=== PATIENT | female | born 1970 | race Caucasian/White ===

== ENCOUNTER 2016-04-29 10:12 | Outpatient (CLI) | payer MEDICAID | END 2016-04-29 10:13 | disposition home or self-care (01) | DX: Z00.00 Encounter for general adult medical examination without abnormal findings (principal); R63.4 Abnormal weight loss; N92.1 Excessive and frequent menstruation with irregular cycle ==

== ENCOUNTER 2016-05-06 10:09 | Outpatient (CLI) | payer MEDICAID | END 2016-05-06 10:10 | disposition home or self-care (01) | DX: D25.1 Intramural leiomyoma of uterus (principal); D25.2 Subserosal leiomyoma of uterus ==

== ENCOUNTER 2016-05-06 10:12 | Outpatient (CLI) | payer MEDICAID | END 2016-05-06 10:13 | disposition home or self-care (01) | DX: N60.02 Solitary cyst of left breast (principal) ==

== ENCOUNTER 2018-04-04 17:24 | Emergency (ER) | payer MEDICAID ==
[2018-04-04 18:13] LABS: BASOPHILS % (AUTO) 0.8 %; EOSINOPHILS # (AUTO) 0.1 10^3/uL (0.0-0.7); EOSINOPHILS % (AUTO) 1.5 %; HGB - HEMOGLOBIN 13.9 g/dL (12.0-16.0); LYMPHOCYTES # (AUTO) 1.8 10^3/uL (1.5-3.5); LYMPHOCYTES % (AUTO) 30.4 %; MEAN CORPUSCULAR HGB CONC 32.7 g/dL (32.0-36.0); MEAN CORPUSCULAR VOLUME 91.7 fL (81.0-99.0); MEAN PLATELET VOLUME 7.1 fL (7.9-10.8); MONOCYTES # (AUTO) 0.4 10^3/uL (0.0-1.0); MONOCYTES % (AUTO) 6.3 %; NEUTROPHILS # (AUTO) 3.6 10^3/uL (1.5-6.6); PLT - PLATELET COUNT 305 10^3/uL (130-450); RED BLOOD COUNT 4.64 10^6/uL (4.20-5.40); RED CELL DISTRIBUTION WIDTH 13.5 % (12.0-15.0)
[2018-04-04 18:28] LABS: ACETAMINOPHEN < 10 ug/mL (10-30); ALBUMIN 4.2 g/dL (3.2-5.5); ALBUMIN/GLOBULIN RATIO 1.2 (1.0-2.2); ALKALINE PHOSPHATASE 52 IU/L (42-121); ALT ALANINE AMINOTRANSFERASE 12 IU/L (10-60); AST ASPARTATE AMINOTRANSFERASE 22 IU/L (10-42); BILIRUBIN,TOTAL 0.4 mg/dL (0.2-1.0); BUN - BLOOD UREA NITROGEN 9 mg/dL (6-20); CALCIUM 8.9 mg/dL (8.5-10.3); CARBON DIOXIDE - CO2 23 mmol/L (21-32); CHLORIDE 106 mmol/L (101-111); CREATININE 1.2 mg/dL (0.4-1.0); GFR - MDRD 48 (>89); GLUCOSE 87 mg/dL (70-100); LIPASE 31 U/L (22-51); SALICYLATE < 6.0 mg/dL; SODIUM 138 mmol/L (135-145); TOTAL PROTEIN 7.6 g/dL (6.7-8.2)
[2018-04-04 19:46] LABS: MUDS CUTOFF CONCENTRATIONS CUTOFF CONC BELOW:
[2018-04-04 19:49] LABS: BILIRUBIN,URINE NEGATIVE (NEGATIVE); GLUCOSE, URINE (UA) NEGATIVE (NEGATIVE); KETONES,URINE (UA) NEGATIVE (NEGATIVE); LEUKOCYTE ESTERASE, URINE TRACE (NEGATIVE); NITRITE,URINE NEGATIVE (NEGATIVE); OCCULT BLOOD,URINE LARGE (NEGATIVE); PROTEIN,URINE TRACE mg/dL (NEGATIVE); UROBILINOGEN,URINE 0.2 (NORMAL) E.U./dL (NORMAL)
[2018-04-04 19:52] LABS: CLARITY,URINE BLOODY (CLEAR); HCG UR QUAL NEGATIVE
[2018-04-04] MEDS ORDERED: PANTOPRAZOLE 40 MG TABLET PO STA (19:54)
[2018-04-04 19:55] LABS: BACTERIA,URINE None Seen /HPF (None Seen); SQUAMOUS EPITHELIAL CELL,UR FEW Squamous (<= Few)
--- NOTE | 2018-04-04 19:57 | ED Physician Documentation ---
History of Present Illness - Stated complaint Stated Complaint: BACK PX/STRESS/SOA/ANXIETY - Chief complaint Chief Complaint: General - History obtained from History obtained from: Patient - History of Present Illness Timing: Other (47-year-old woman with history of anxiety and pressure and has been self-medicating with alcohol and is subacute epigastric pain that does not change with eating worse over the last few days without vomiting or changes in bowel movements. She also would like to quit drinking. She would like some medications for it and specifically requests naltrexone she is never been on before she will try to get counseling near her home.) Review of Systems Constitutional: denies: Fever, Chills Nose: denies: Rhinorrhea / runny nose, Congestion Cardiac: denies: Chest pain / pressure, Palpitations Respiratory: denies: Dyspnea, Cough GI: reports: Abdominal Pain. denies: Nausea, Vomiting PD PAST MEDICAL HISTORY - Past Surgical History Past Surgical History: No - Present Medications Home Medications: Ambulatory Orders Medication Instructions Recorded Confirmed Ondansetron Odt [Zofran] 4 mg TL Q6H PRN #14 tablet 12/19/15 Naltrexone HCl 50 mg PO DAILY #30 tablet 04/04/18 Omeprazole 20 mg PO BID #30 tablet. 04/04/18 clonazePAM [Clonazepam] 1 mg PO TID PRN #15 tablet 04/04/18 - Allergies Allergies/Adverse Reactions: Allergies Allergy/AdvReac Type Severity Reaction Status Date / Time No Known Drug Allergies Allergy Verified 04/04/18 17:49 - Social History Does the pt smoke?: Yes Smoking Status: Current every day smoker Does the pt drink ETOH?: No Does the pt have substance abuse?: No - Immunizations Immunizations are current?: No Immunizations: TDAP >10years/unknown PD ED PE NORMAL - Vitals Vital signs reviewed: Yes - General General: Alert and oriented X 3, No acute distress - HEENT HEENT: PERRL, EOMI - Neck Neck: Supple, no meningeal sign, No bony TTP - Cardiac Cardiac: RRR, No murmur - Respiratory Respiratory: No respiratory distress, Clear bilaterally - Abdomen Abdomen: Normal bowel sounds, Soft, Non tender - Neuro Neuro: Alert and oriented X 3, Normal speech - Psych Psych: Normal mood, Normal affect Results - Vitals Vitals: Vital Signs - 24 hr 04/04/18 04/04/18 17:40 19:27 Temperature 36.4 C L 36.8 C Heart Rate 85 100 Respiratory 16 18 Rate Blood Pressure 120/87 H 109/68 O2 Saturation 99 99 Oxygen O2 Source Room air - EKG (time done) 1752 Rate: Rate (enter#) (97) Rhythm: NSR [place]: Normal Intervals: Normal IA QRS: Normal Ischemia: Normal ST segments Computer interpretation: Agree with computer - Labs Labs: Laboratory Tests 04/04/18 04/04/18 04/04/18 18:08 18:08 18:08 WBC 6.0 RBC 4.64 Hgb 13.9 Hct 42.6 MCV 91.7 MCH 30.0 MCHC 32.7 RDW 13.5 Plt Count 305 MPV 7.1 L Neut # (Auto) 3.6 Lymph # (Auto) 1.8 [place] # (Auto) 0.4 Eos # (Auto) 0.1 Baso # (Auto) 0.0 Absolute Nucleated RBC 0.01 Nucleated RBC % 0.1 Sodium 138 Potassium 3.5 Chloride 106 Carbon Dioxide 23 Anion Gap 9.0 BUN 9 Creatinine 1.2 H Estimated GFR (MDRD) 48 L Glucose 87 Calcium 8.9 Total Bilirubin 0.4 AST 22 ALT 12 Alkaline Phosphatase 52 Total Protein 7.6 Albumin 4.2 Globulin 3.4 Albumin/Globulin Ratio 1.2 Lipase 31 TSH 1.78 Urine Color Urine Clarity Urine pH Ur Specific [place] Urine Protein Urine Glucose (UA) Urine Ketones Urine Occult Blood Urine Nitrite Urine Bilirubin Urine Urobilinogen Ur Leukocyte Esterase Urine RBC Urine WBC Ur Squamous Epith Cells Urine Bacteria Ur Microscopic Review Urine Culture Comments Urine HCG, Qual Salicylates < 6.0 Urine Opiates Screen Ur Oxycodone Screen Urine Methadone Screen Ur Propoxyphene Screen Acetaminophen < 10 L Ur Barbiturates Screen Ur Tricyclics Screen Ur Phencyclidine Scrn Ur Amphetamine Screen U Methamphetamines Scrn U Benzodiazepines Scrn Urine Cocaine Screen U Cannabinoids Screen Ethyl Alcohol 146.6 04/04/18 04/04/18 19:35 19:35 WBC RBC Hgb Hct MCV MCH MCHC RDW Plt Count MPV Neut # (Auto) Lymph # (Auto) [place] # (Auto) Eos # (Auto) Baso # (Auto) Absolute Nucleated RBC Nucleated RBC % Sodium Potassium Chloride Carbon Dioxide Anion Gap BUN Creatinine Estimated GFR (MDRD) Glucose Calcium Total Bilirubin AST ALT Alkaline Phosphatase Total Protein Albumin Globulin Albumin/Globulin Ratio Lipase TSH Urine Color DK. ORANGE Urine Clarity BLOODY Urine pH 6.0 Ur Specific [place] 1.015 1.015 Urine Protein TRACE Urine Glucose (UA) NEGATIVE Urine Ketones NEGATIVE Urine Occult Blood LARGE H Urine Nitrite NEGATIVE Urine Bilirubin NEGATIVE Urine Urobilinogen 0.2 (NORMAL) Ur Leukocyte Esterase TRACE H Urine RBC 6-10 H Urine WBC 4-5 Ur Squamous Epith Cells FEW Squamous Urine Bacteria None Seen Ur Microscopic Review INDICATED Urine Culture Comments INDICATED Urine HCG, Qual NEGATIVE Salicylates Urine Opiates Screen NEGATIVE Ur Oxycodone Screen NEGATIVE Urine Methadone Screen NEGATIVE Ur Propoxyphene Screen NEGATIVE Acetaminophen Ur Barbiturates Screen NEGATIVE Ur Tricyclics Screen NEGATIVE Ur Phencyclidine Scrn NEGATIVE Ur Amphetamine Screen NEGATIVE U Methamphetamines Scrn NEGATIVE U Benzodiazepines Scrn NEGATIVE Urine Cocaine Screen NEGATIVE U Cannabinoids Screen NEGATIVE Ethyl Alcohol PD MEDICAL DECISION MAKING - ED course ED course: 47-year-old woman with history of anxiety and depression presents with ongoing alcohol abuse and symptoms of alcoholic gastritis with a benign examination and labs. She was treated here with Protonix, but will forego other anxiety and a lcohol medications told the morning as she is still intoxicated and she is understanding of this. Departure - Departure Disposition: 01 Home, Self Care Clinical Impression: Alcohol abuse Gastritis Qualifiers: Gastritis type: alcoholic Chronicity: acute Gastritis bleeding: without bleeding Qualified Code(s): K29.20 - Alcoholic gastritis without bleeding Condition: Good Record reviewed to determine appropriate education?: Yes Instructions: ED PUD Vs Gastritis, ED Alcohol Abuse Prescriptions: clonazePAM [Clonazepam] 1 mg PO TID PRN #15 tablet PRN Reason: Anxiety Naltrexone HCl 50 mg PO DAILY #30 tablet Omeprazole 20 mg PO BID #30 tablet. Comments: Call your doctor to arrange a follow-up appointment, make the next available appointment. In the interim, return anytime if worse or if new symptoms develop.
[2018-04-04 20:00] LABS: AMPHETAMINE SCREEN,URINE NEGATIVE (NEGATIVE); BENZODIAZEPINES SCREEN, URINE NEGATIVE (NEGATIVE); COCAINE SCREEN URINE NEGATIVE (NEGATIVE); METHADONE SCREEN, URINE NEGATIVE (NEGATIVE); METHAMPHETAMINES SCREEN, URINE NEGATIVE (NEGATIVE); OPIATE SCREEN, URINE NEGATIVE (NEGATIVE); OXYCODONE SCREEN, URINE NEGATIVE (NEGATIVE); PROPOXYPHENE SCREEN, URINE NEGATIVE (NEGATIVE); TRICYCLIC ANTIDEPRESSANT,URINE NEGATIVE (NEGATIVE)
[2018-04-04 20:05] VITALS: BP 92/73
== END 2018-04-04 20:05 | disposition home or self-care (01) ==
LOC: ED 17:24
DX: F10.10 Alcohol abuse, uncomplicated (principal); K29.20 Alcoholic gastritis without bleeding; F17.290 Nicotine dependence, other tobacco product, uncomplicated
CPT/HCPCS: 36415; 80053; 80306; 80307; 80320; 80329; 81001; 81025; 83690; 84443; 85025; 87086; 93005; 99283; 99284; A9270; 81003

== ENCOUNTER 2018-09-20 10:44 | Outpatient (CLI) | payer MEDICAID ==
[2018-09-20 17:22] LABS: EOSINOPHILS # (AUTO) 0.1 10^3/uL (0.0-0.7); EOSINOPHILS % (AUTO) 1.7 %; LYMPHOCYTES # (AUTO) 1.4 10^3/uL (1.5-3.5); LYMPHOCYTES % (AUTO) 33.9 %; MEAN CORPUSCULAR HEMOGLOBIN 30.4 pg (27.0-31.0); MEAN CORPUSCULAR HGB CONC 32.8 g/dL (32.0-36.0); MEAN CORPUSCULAR VOLUME 92.6 fL (81.0-99.0); MEAN PLATELET VOLUME 10.1 fL (7.9-10.8); MONOCYTES # (AUTO) 0.4 10^3/uL (0.0-1.0); MONOCYTES % (AUTO) 9.7 %; NEUTROPHILS # (AUTO) 2.2 10^3/uL (1.5-6.6); NEUTROPHILS % (AUTO) 53.5 %; PLT - PLATELET COUNT 305 10^3/uL (130-450); RED BLOOD COUNT 4.61 10^6/uL (4.20-5.40); RED CELL DISTRIBUTION WIDTH 13.6 % (12.0-15.0)
[2018-09-20 17:44] LABS: THYROID STIMULATING HORMONE 0.93 uIU/mL (0.34-5.60)
[2018-09-20 18:13] LABS: FOLLICLE STIMULATING HORMONE 18.35 mIU/mL
== END 2018-09-20 10:45 | disposition home or self-care (01) ==
LOC: LAB.S 10:44
PROVIDERS: ATTEND Physician Assistant Medical
DX: N95.9 Unspecified menopausal and perimenopausal disorder (principal); R53.83 Other fatigue
CPT/HCPCS: 36415; 82670; 83001; 84443; 85025

== ENCOUNTER 2018-09-27 16:32 | Outpatient (CLI) | payer MEDICAID ==
--- NOTE | 2018-09-28 08:39 | Mammography Report ---
Reason: SCREENING MAMMO Procedure Date: 09/27/2018 Accession Number: [id number] / [id number] Procedure: ANASTASIA - Screening Mammo w/Julio CPT Code: FULL RESULT: EXAM: Screening Mammo w/Julio DATE: 09/27/2018 4:58 PM CLINICAL HISTORY: Screening encounter. History of late childbearing. Family history of breast cancer in a sister at the age of 46 and a sister at the age of 56. TECHNIQUE: (B) - Bilateral CC and MLO views were obtained. COMPARISON: 05/06/2016. PARENCHYMAL PATTERN: (D) - The breast(s) demonstrate(s) heterogeneously dense fibroglandular parenchyma. FINDINGS: In the right axillary tail region, upper outer quadrant approximately 6 cm from the nipple is a focal asymmetry with questionable architectural distortion and possible calcifications in the setting of new prominent right axillary lymph nodes. This requires clarification with spot magnification views the asymmetry as well as ultrasound of lymph nodes for clarification of architecture and possibly ultrasound of the asymmetry. Seen on 3-D imaging only in the right lateral breast, 5:00 position, approximately 5 to 6 cm from the nipple on right MLO 3-D image 13 and right cc 3-D image 12 is a isodense well-circumscribed 5 mm nodule, ultrasound visualization recommended. There are no suspicious masses, calcifications, or areas of distortion in the left breast. IMPRESSION: Incomplete examination. BI-RADS category 0. RECOMMENDATION: (ADDMU) - Additional views using both Mammography and Ultrasound recommended. Right spot magnification views and ultrasound. BI-RADS CATEGORY: (0) - Incomplete Examination - need additional evaluation. STANDARD QUALIFYING STATEMENTS: 1. This examination was not reviewed with the aid of Computer-Aided Detection (CAD). 2. A negative or benign imaging report should not preclude biopsy if clinically suspicious findings are present. 3. Dense breasts may obscure an underlying neoplasm. 4. This examination was reviewed with the aid of 3D breast imaging (tomosynthesis).
== END 2018-09-27 16:33 | disposition home or self-care (01) ==
LOC: DI 16:32
PROVIDERS: ATTEND Physician Assistant Medical
DX: Z12.31 Encounter for screening mammogram for malignant neoplasm of breast (principal); R92.8 Other abnormal and inconclusive findings on diagnostic imaging of breast; Z80.3 Family history of malignant neoplasm of breast
CPT/HCPCS: 77063; 77067

== ENCOUNTER 2018-10-05 09:38 | Outpatient (CLI) | payer MEDICAID ==
--- NOTE | 2018-10-05 16:21 | Mammography Report ---
Reason: ABNORMAL MAMMOGRAM Procedure Date: 10/05/2018 Accession Number: [id number] / [id number] Procedure: ANASTASIA - Diag Special Views Dig RT CPT Code: FULL RESULT: EXAM: Diag Special Views Dig RT DATE: 10/05/2018 10:29 AM CLINICAL HISTORY: Diagnostic examination. The patient is recalled for a right axillary tail region asymmetry. TECHNIQUE: (R) - Right right spot CC, right spot MLO, right ML images are obtained. Right breast focused ultrasound is performed. COMPARISON: 09/27/2018 and 05/06/2016. PARENCHYMAL PATTERN: (D) - The breast(s) demonstrate(s) heterogeneously dense fibroglandular parenchyma. FINDINGS: The asymmetry in the right axillary tail is revealed a normal-appearing breast tissue without architectural distortion on spot views. Mammography similarly demonstrates interval decrease in size of the visualized axillary lymph nodes. Focused ultrasound of the right axillary region and axillary breast tail demonstrates normal breast tissue and normal-appearing lymph nodes measuring less than 1 cm in short axis with preserved architecture on ultrasound. There are no suspicious masses, calcifications, or areas of distortion. IMPRESSION: Benign findings. BI-RADS category 2. RECOMMENDATION: (ANNUAL) - Recommend routine annual screening mammography. BI-RADS CATEGORY: (2) - Benign Findings. STANDARD QUALIFYING STATEMENTS: 1. This examination was not reviewed with the aid of Computer-Aided Detection (CAD). 2. A negative or benign imaging report should not preclude biopsy if clinically suspicious findings are present. 3. Dense breasts may obscure an underlying neoplasm. 4. This examination was reviewed with the aid of 3D breast imaging (tomosynthesis).
== END 2018-10-05 09:39 | disposition home or self-care (01) ==
LOC: DI 09:38
PROVIDERS: ATTEND Physician Assistant Medical
DX: R92.8 Other abnormal and inconclusive findings on diagnostic imaging of breast (principal)
CPT/HCPCS: 76642

== ENCOUNTER 2018-11-24 09:50 | Emergency (ER) | payer MEDICAID ==
[2018-11-24 10:08] VITALS: BP 121/73
[2018-11-24] MEDS ORDERED: IBUPROFEN 800 MG TABLET PO STA (10:58)
[2018-11-24] MEDS ORDERED: AMOX/CLAV 875 MG/125 MG TABLET PO STA (10:59)
--- NOTE | 2018-11-24 11:02 | ED Physician Documentation ---
PD HPI HEENT - Stated complaint Stated Complaint: EAR PX - Chief complaint Chief Complaint: Heent - History obtained from History obtained from: Patient - History of Present Illness Timing - onset: Today Timing - details: Still present Location: Right ear Similar symptoms before: Has not had sx before - Additional information Additional information: The patient is a 48-year-old female who presents with right earache that started this morning when she awoke. She denies fever, headache, sore throat, or cough. She denies history of similar symptoms in the past. 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 : None HEENT: None Psych: Depression, Anxiety Musculoskeletal: None Derm: None - Past Surgical History Past Surgical History: No - Present Medications Home Medications: Ambulatory Orders Medication Instructions Recorded Confirmed Amox/Clav 875/125 [Augmentin] 1 each PO Q12H #14 tablet 11/24/18 - Allergies Allergies/Adverse Reactions: Allergies Allergy/AdvReac Type Severity Reaction Status Date / Time No Known Drug Allergies Allergy Verified 11/24/18 10:08 - Social History Does the pt smoke?: Yes Smoking Status: Current every day smoker Does the pt drink ETOH?: No Does the pt have substance abuse?: No - Immunizations Immunizations are current?: No Immunizations: TDAP >10years/unknown - POLST Patient has POLST: No PD ED PE NORMAL - Vitals Vital signs reviewed: Yes (normal) - General General: Alert and oriented X 3, Well developed/nourished - HEENT HEENT: Atraumatic, EOMI, Pharynx benign, Other (Right tympanic membrane is markedly erythematous and angry-appearing, with loss of landmarks. Left tympanic membrane is clear.) - Neck Neck: Supple, no meningeal sign, No adenopathy - Cardiac Cardiac: RRR - Respiratory Respiratory: No respiratory distress, Clear bilaterally - Derm Derm: No rash - Neuro Neuro: Alert and oriented X 3 Results - Vitals Vitals: Oxygen O2 Source Room air PD MEDICAL DECISION MAKING - ED course Complexity details: considered differential, d/w patient ED course: The patient's presentation is most consistent with acute right otitis media. Her presentation does not suggest meningitis, pharyngitis, or peritonsillar abscess. Treatment in the emergency department included administration of Augmentin 875 mg orally, and ibuprofen 800 mg orally. She is being discharged with a prescription for Augmentin. I discussed with her the expected course of illness, antibiotic treatment and outpatient follow-up, as well as potentially worrisome signs or symptoms that should prompt reevaluation in the emergency department. Departure - Departure Disposition: Home, Self Care Clinical Impression: Acute right otitis media Condition: Stable Instructions: ED Otitis Media Acute Adult Follow-Up: Nikunj Hooker MD [Provider Admit Priv/Credential] - Prescriptions: Amox/Clav 875/125 [Augmentin] 1 each PO Q12H #14 tablet Comments: Take Augmentin twice daily as prescribed. You can use ibuprofen, up to 800 mg 3 times daily if needed for pain. Follow-up with your primary physician within 2 weeks. Call to schedule an appointment. Return to the emergency department if you develop increasing pain, difficulty swallowing, or otherwise worsening symptoms. Discharge Date/Time: 11/24/18 11:10
== END 2018-11-24 11:10 | disposition home or self-care (01) ==
LOC: ED 09:50
DX: H66.91 Otitis media, unspecified, right ear (principal); F17.200 Nicotine dependence, unspecified, uncomplicated
CPT/HCPCS: 99282; 99283; A9270

== ENCOUNTER 2019-03-23 04:07 | Emergency (ER) | payer MEDICAID ==
--- NOTE | 2019-03-23 04:33 | ED Physician Documentation ---
History of Present Illness - Stated complaint Stated Complaint: ANXIETY - History obtained from History obtained from: Patient - History of Present Illness Timing: Chronic Pain level max: 0 Pain level now: 0 Improved by: nothing Worsened by: no exacerbating factors - Additonal information Additional information: patient says she began drinking on a regular, daily basis 3 years ago, typically 6-12 beers per day. She also took up smoking around the same time. She says this is "to cope" (per patient) with stress and feeling depressed. She presents at this time asking for help in quitting drinking. She says she was able to stop drinking for 10 days at the end of last month when she was on a "meditative retreat", but she was dismayed to find that as soon as she returned from this, she resumed drinking as before Review of Systems Cardiac: reports: Reviewed and negative Respiratory: reports: Reviewed and negative GI: denies: Abdominal Pain, Nausea, Vomiting, Constipation, Diarrhea Psychiatric: reports: Depressed, Insomnia. 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 : None HEENT: None Psych: Depression, Anxiety Musculoskeletal: None Derm: None - Past Surgical History Past Surgical History: No - Present Medications Home Medications: Ambulatory Orders Medication Instructions Recorded Confirmed Amox/Clav 875/125 [Augmentin] 1 each PO Q12H #14 tablet 11/24/18 Cetirizine [ZyrTEC] 10 mg PO DAILY #15 tablet 03/23/19 LORazepam [Ativan] 1 mg PO Q6H PRN #25 tablet 03/23/19 dexAMETHasone [Decadron] 4 mg PO DAILY #5 tablet 03/23/19 - Allergies Allergies/Adverse Reactions: Allergies Allergy/AdvReac Type Severity Reaction Status Date / Time No Known Drug Allergies Allergy Verified 11/24/18 10:08 - Social History Does the pt smoke?: Yes Smoking Status: Current every day smoker Does the pt drink ETOH?: No Does the pt have substance abuse?: No - Immunizations Immunizations are current?: No Immunizations: TDAP >10years/unknown - POLST Patient has POLST: No PD ED PE NORMAL - Vitals Vital signs reviewed: Yes - General General: Alert and oriented X 3, No acute distress, Well developed/nourished - HEENT HEENT: PERRL, Moist mucous membranes - Cardiac Cardiac: RRR, No murmur - Respiratory Respiratory: No respiratory distress, Clear bilaterally - Abdomen Abdomen: Soft, Non tender - Neuro Neuro: Alert and oriented X 3 Eye Opening: Spontaneous Motor: Obeys Commands Verbal: Oriented GCS Score: 15 - Psych Psych: Normal affect, Other (mood is appropriate to situation; cries when we discuss her depression) Results - Vitals Vitals: Vital Signs - 24 hr 03/23/19 03/23/19 03/23/19 04:09 08:25 10:12 Temperature 36.8 C 36.7 C Heart Rate 87 86 66 Respiratory 18 16 16 Rate Blood Pressure 130/83 H 104/60 113/75 O2 Saturation 99 100 100 Oxygen O2 Source Room air - Labs Labs: Laboratory Tests 03/23/19 03/23/19 03/23/19 04:55 05:00 05:00 WBC 7.1 RBC 4.70 Hgb 13.8 Hct 42.1 MCV 89.6 MCH 29.4 MCHC 32.8 RDW 14.0 Plt Count 298 MPV 8.9 Neut # (Auto) 4.0 Lymph # (Auto) 2.3 [place] # (Auto) 0.6 Eos # (Auto) 0.2 Baso # (Auto) 0.1 Absolute Nucleated RBC 0.00 Nucleated RBC % 0.0 Sodium 136 Potassium 4.1 Chloride 104 Carbon Dioxide 25 Anion Gap 7.0 BUN 12 Creatinine 0.8 Estimated GFR (MDRD) 77 L Glucose 90 Calcium 9.1 Total Bilirubin 0.5 AST 20 ALT 14 Alkaline Phosphatase 50 Total Protein 7.6 Albumin 4.3 Globulin 3.3 Albumin/Globulin Ratio 1.3 Lipase 43 TSH Urine Color YELLOW Urine Clarity CLEAR Urine pH 5.5 Ur Specific [place] 1.015 Urine Protein NEGATIVE Urine Glucose (UA) NEGATIVE Urine Ketones NEGATIVE Urine Occult Blood TRACE-INTA Urine Nitrite NEGATIVE Urine Bilirubin NEGATIVE Urine Urobilinogen 0.2 (NORMAL) Ur Leukocyte Esterase NEGATIVE Ur Microscopic Review NOT INDICATED Urine Culture Comments NOT INDICATED Salicylates < 6.0 Urine Opiates Screen NEGATIVE Ur Oxycodone Screen NEGATIVE Urine Methadone Screen NEGATIVE Ur Propoxyphene Screen NEGATIVE Acetaminophen < 10 L Ur Barbiturates Screen NEGATIVE Ur Tricyclics Screen NEGATIVE Ur Phencyclidine Scrn NEGATIVE Ur Amphetamine Screen NEGATIVE U Methamphetamines Scrn NEGATIVE U Benzodiazepines Scrn NEGATIVE Urine Cocaine Screen NEGATIVE U Cannabinoids Screen NEGATIVE Ethyl Alcohol < 5.0 03/23/19 05:00 WBC RBC Hgb Hct MCV MCH MCHC RDW Plt Count MPV Neut # (Auto) Lymph # (Auto) [place] # (Auto) Eos # (Auto) Baso # (Auto) Absolute Nucleated RBC Nucleated RBC % Sodium Potassium Chloride Carbon Dioxide Anion Gap BUN Creatinine Estimated GFR (MDRD) Glucose Calcium Total Bilirubin AST ALT Alkaline Phosphatase Total Protein Albumin Globulin Albumin/Globulin Ratio Lipase TSH 2.27 Urine Color Urine Clarity Urine pH Ur Specific [place] Urine Protein Urine Glucose (UA) Urine Ketones Urine Occult Blood Urine Nitrite Urine Bilirubin Urine Urobilinogen Ur Leukocyte Esterase Ur Microscopic Review Urine Culture Comments Salicylates Urine Opiates Screen Ur Oxycodone Screen Urine Methadone Screen Ur Propoxyphene Screen Acetaminophen Ur Barbiturates Screen Ur Tricyclics Screen Ur Phencyclidine Scrn Ur Amphetamine Screen U Methamphetamines Scrn U Benzodiazepines Scrn Urine Cocaine Screen U Cannabinoids Screen Ethyl Alcohol PD MEDICAL DECISION MAKING - ED course Complexity details: reviewed old records, reviewed results, re-evaluated patient, considered differential, d/w patient ED course: Patient was T+R from this ED 1 year ago for similar c/o. She was provided rx for naltrexone, omeprazole, and clonazepam. However, she tells me she never filled the rx. She says she has never received treatment or counseling for alcoholism. Will have PAULINO jefferson in AM Departure - Departure Disposition: 01 Home, Self Care Clinical Impression: Alcohol abuse, Ear pain, left, Depressed affect Condition: Good Instructions: ED Depression, ED Alcohol Abuse Follow-Up: [facility] [place] [Provider Group] [facility] [Provider Group] Prescriptions: Cetirizine [ZyrTEC] 10 mg PO DAILY #15 tablet dexAMETHasone [Decadron] 4 mg PO DAILY #5 tablet LORazepam [Ativan] 1 mg PO Q6H PRN #25 tablet PRN Reason: Alcohol Withdrawal Comments: Stay well-hydrated. Avoid alcohol. Daily exercise. Use lorazepam every 6-8 hours if needed for alcohol withdrawal or shakiness. He can also be used to help as a sleep aid at night. For your your pain, I presume it some inflammation and poor drainage through the eustachian tube. Use cetirizine antihistamine daily for couple weeks. Decadron steroid daily for 5 days. Follow-up with your primary care regarding general wellness. Follow-up with the resources for alcoholism provided by the social work. You can follow-up with research microbiologist if your ear is not improving and that could be a group up in [place] or you could call the [facility] for their ENT there to set up an appointment. Discharge Date/Time: 03/23/19 10:29
[2019-03-23 05:07] LABS: MUDS CUTOFF CONCENTRATIONS CUTOFF CONC BELOW:
[2019-03-23 05:08] LABS: BASOPHILS # (AUTO) 0.1 10^3/uL (0.0-0.1); EOSINOPHILS # (AUTO) 0.2 10^3/uL (0.0-0.7); EOSINOPHILS % (AUTO) 2.7 %; HGB - HEMOGLOBIN 13.8 g/dL (12.0-16.0); LYMPHOCYTES # (AUTO) 2.3 10^3/uL (1.5-3.5); LYMPHOCYTES % (AUTO) 31.7 %; MEAN CORPUSCULAR HEMOGLOBIN 29.4 pg (27.0-31.0); MEAN CORPUSCULAR HGB CONC 32.8 g/dL (32.0-36.0); MEAN CORPUSCULAR VOLUME 89.6 fL (81.0-99.0); MEAN PLATELET VOLUME 8.9 fL (7.9-10.8); MONOCYTES # (AUTO) 0.6 10^3/uL (0.0-1.0); MONOCYTES % (AUTO) 7.9 %; NEUTROPHILS % (AUTO) 56.3 %; PLT - PLATELET COUNT 298 10^3/uL (130-450); WHITE BLOOD COUNT 7.1 x10^3/uL (4.8-10.8)
[2019-03-23 05:10] LABS: BILIRUBIN,URINE NEGATIVE (NEGATIVE); GLUCOSE, URINE (UA) NEGATIVE (NEGATIVE); KETONES,URINE (UA) NEGATIVE (NEGATIVE); LEUKOCYTE ESTERASE, URINE NEGATIVE (NEGATIVE); NITRITE,URINE NEGATIVE (NEGATIVE); OCCULT BLOOD,URINE TRACE-INTA (NEGATIVE); PH,URINE 5.5 PH (5.0-7.5); PROTEIN,URINE NEGATIVE (NEGATIVE); UROBILINOGEN,URINE 0.2 (NORMAL) E.U./dL (NORMAL)
[2019-03-23 05:11] LABS: CLARITY,URINE CLEAR (CLEAR)
[2019-03-23 05:22] LABS: AMPHETAMINE SCREEN,URINE NEGATIVE (NEGATIVE); BENZODIAZEPINES SCREEN, URINE NEGATIVE (NEGATIVE); COCAINE SCREEN URINE NEGATIVE (NEGATIVE); METHADONE SCREEN, URINE NEGATIVE (NEGATIVE); METHAMPHETAMINES SCREEN, URINE NEGATIVE (NEGATIVE); OPIATE SCREEN, URINE NEGATIVE (NEGATIVE); OXYCODONE SCREEN, URINE NEGATIVE (NEGATIVE); PROPOXYPHENE SCREEN, URINE NEGATIVE (NEGATIVE); TRICYCLIC ANTIDEPRESSANT,URINE NEGATIVE (NEGATIVE)
[2019-03-23 05:24] LABS: ACETAMINOPHEN < 10 ug/mL (10-30); ALBUMIN 4.3 g/dL (3.2-5.5); ALBUMIN/GLOBULIN RATIO 1.3 (1.0-2.2); ALKALINE PHOSPHATASE 50 IU/L (42-121); ALT ALANINE AMINOTRANSFERASE 14 IU/L (10-60); AST ASPARTATE AMINOTRANSFERASE 20 IU/L (10-42); BILIRUBIN,TOTAL 0.5 mg/dL (0.2-1.0); BUN - BLOOD UREA NITROGEN 12 mg/dL (6-20); CALCIUM 9.1 mg/dL (8.5-10.3); CARBON DIOXIDE - CO2 25 mmol/L (21-32); CHLORIDE 104 mmol/L (101-111); CREATININE 0.8 mg/dL (0.4-1.0); GFR - MDRD 77 (>89); GLUCOSE 90 mg/dL (70-100); LIPASE 43 U/L (22-51); SALICYLATE < 6.0 mg/dL; SODIUM 136 mmol/L (135-145); TOTAL PROTEIN 7.6 g/dL (6.7-8.2)
[2019-03-23 10:20] VITALS: BP 113/75
== END 2019-03-23 10:29 | disposition home or self-care (01) ==
LOC: ED 04:07
DX: F32.9 Major depressive disorder, single episode, unspecified (principal); F10.10 Alcohol abuse, uncomplicated; H92.02 Otalgia, left ear; F17.200 Nicotine dependence, unspecified, uncomplicated
CPT/HCPCS: 36415; 80053; 80306; 80307; 80320; 80329; 81001; 81003; 83690; 84443; 85025; 87086; 99283; 99284

== ENCOUNTER 2019-04-01 17:34 | Emergency (ER) | payer MEDICAID ==
--- NOTE | 2019-04-01 18:03 | ED Physician Documentation ---
PD HPI ABD PAIN - Stated complaint Stated Complaint: RAPID HEART RATE, SOA - Chief complaint Chief Complaint: Cardiac - History obtained from History obtained from: Patient - History of Present Illness Timing - onset: Other (Over the last 3 days this woman has had some trouble with alcohol in the past has been overindulging on herbal supplements because they contain alcohol. She drank 3 full bottles of herbal teas/extracts. 1 contained [place], holy basil, mother work, to the [place], another contained go to cola and pedicular areas and milky oats and the last one contained go to cola black cohosh etc. They all had alcohol in them. Now she feels like her heart is beating oddly and is feeling anxious. She also had some sweats and wondered if her pupils are the wrong size.) Review of Systems Constitutional: reports: Sweats. denies: Fever, Chills Nose: denies: Rhinorrhea / runny nose, Congestion Cardiac: reports: Chest pain / pressure, Palpitations Respiratory: denies: Dyspnea, Cough PD PAST MEDICAL HISTORY - Past Medical History Cardiovascular: None Respiratory: None Neuro: None Endocrine/Autoimmune: None GI: None RADIO PERSONALITY: None : None HEENT: None Psych: Depression, Anxiety Musculoskeletal: None Derm: None - Past Surgical History Past Surgical History: No - Present Medications Home Medications: Ambulatory Orders Medication Instructions Recorded Confirmed Amox/Clav 875/125 [Augmentin] 1 each PO Q12H #14 tablet 11/24/18 Cetirizine [ZyrTEC] 10 mg PO DAILY #15 tablet 03/23/19 LORazepam [Ativan] 1 mg PO Q6H PRN #25 tablet 03/23/19 dexAMETHasone [Decadron] 4 mg PO DAILY #5 tablet 03/23/19 - Allergies Allergies/Adverse Reactions: Allergies Allergy/AdvReac Type Severity Reaction Status Date / Time No Known Drug Allergies Allergy Verified 04/01/19 17:46 - Social History Does the pt smoke?: Yes Smoking Status: Current every day smoker Does the pt drink ETOH?: No Does the pt have substance abuse?: No - Immunizations Immunizations are current?: No Immunizations: TDAP >10years/unknown - POLST Patient has POLST: No PD ED PE NORMAL - Vitals Vital signs reviewed: Yes - General General: Alert and oriented X 3, No acute distress - HEENT HEENT: PERRL, EOMI - Neck Neck: Supple, no meningeal sign, No bony TTP - Cardiac Cardiac: RRR, No murmur - Respiratory Respiratory: No respiratory distress, Clear bilaterally - Abdomen Abdomen: Non tender - Neuro Neuro: Alert and oriented X 3, Normal speech - Psych Psych: Normal mood, Normal affect Results - Vitals Vitals: Vital Signs - 24 hr 04/01/19 17:42 Temperature 36.0 C L Heart Rate 102 H Respiratory 20 Rate Blood Pressure 117/77 O2 Saturation 98 Oxygen O2 Source Room air - EKG (time done) 1740 Rate: Rate (enter#) (82) Rhythm: NSR [place]: Normal Intervals: Normal [place] QRS: Normal Ischemia: Normal ST segments Computer interpretation: Agree with computer - Labs Labs: Laboratory Tests 04/01/19 18:25 Sodium 138 Potassium 3.2 L Chloride 107 Carbon Dioxide 20 L Anion Gap 11.0 BUN 11 Creatinine 0.6 Estimated GFR (MDRD) 107 Glucose 82 Calcium 8.5 Total Bilirubin 0.8 AST 19 ALT 12 Alkaline Phosphatase 33 L Total Protein 6.7 Albumin 3.7 Globulin 3.0 Albumin/Globulin Ratio 1.2 Lipase 34 Ethyl Alcohol 17.9 PD MEDICAL DECISION MAKING - ED course ED course: 48-year-old woman presents with jitteriness and palpitations after drinking too much of herbal extracts containing alcohol. She was observed for a while without clinical decompensation and no arrhythmias on the monitor. Departure - Departure Disposition: Home, Self Care Clinical Impression: Abuse of herbal medicine, Heart palpitations Condition: Good Record reviewed to determine appropriate education?: Yes Instructions: ED Drug Abuse General Comments: Call your doctor to arrange a follow-up appointment, make the next available appointment. In the interim, return anytime if worse or if new symptoms develop.
[2019-04-01 18:44] LABS: ALBUMIN 3.7 g/dL (3.2-5.5); ALBUMIN/GLOBULIN RATIO 1.2 (1.0-2.2); BILIRUBIN,TOTAL 0.8 mg/dL (0.2-1.0); CALCIUM 8.5 mg/dL (8.5-10.3); CREATININE 0.6 mg/dL (0.4-1.0); TOTAL PROTEIN 6.7 g/dL (6.7-8.2)
[2019-04-01] MEDS ORDERED: POTASSIUM CHLORIDE 20 MEQ TABLET PO STA (18:55)
[2019-04-01 19:05] VITALS: BP 111/99
== END 2019-04-01 19:08 | disposition home or self-care (01) ==
LOC: ED 17:34
DX: F55.1 Abuse of herbal or folk remedies (principal); R00.2 Palpitations; F17.200 Nicotine dependence, unspecified, uncomplicated
CPT/HCPCS: 36415; 80053; 80320; 83690; 93005; 99284; A9270

== ENCOUNTER 2019-05-09 19:59 | Emergency (ER) | payer MEDICAID ==
[2019-05-09 20:06] VITALS: BP 125/84
[2019-05-09 20:41] LABS: BASOPHILS # (AUTO) 0.1 10^3/uL (0.0-0.1); BASOPHILS % (AUTO) 0.9 %; EOSINOPHILS # (AUTO) 0.2 10^3/uL (0.0-0.7); HGB - HEMOGLOBIN 12.4 g/dL (12.0-16.0); LYMPHOCYTES # (AUTO) 2.3 10^3/uL (1.5-3.5); LYMPHOCYTES % (AUTO) 33.2 %; MEAN CORPUSCULAR HGB CONC 32.2 g/dL (32.0-36.0); MEAN CORPUSCULAR VOLUME 90.2 fL (81.0-99.0); MEAN PLATELET VOLUME 9.2 fL (7.9-10.8); MONOCYTES # (AUTO) 0.5 10^3/uL (0.0-1.0); MONOCYTES % (AUTO) 7.8 %; NEUTROPHILS # (AUTO) 3.8 10^3/uL (1.5-6.6); NEUTROPHILS % (AUTO) 54.8 %; PLT - PLATELET COUNT 274 10^3/uL (130-450); RED BLOOD COUNT 4.27 10^6/uL (4.20-5.40); RED CELL DISTRIBUTION WIDTH 14.5 % (12.0-15.0); WHITE BLOOD COUNT 6.9 x10^3/uL (4.8-10.8)
[2019-05-09 20:53] LABS: ALBUMIN 4.1 g/dL (3.2-5.5); ALBUMIN/GLOBULIN RATIO 1.6 (1.0-2.2); BILIRUBIN,TOTAL 0.3 mg/dL (0.2-1.0); CALCIUM 8.9 mg/dL (8.5-10.3); CREATININE 0.9 mg/dL (0.4-1.0); TOTAL PROTEIN 6.7 g/dL (6.7-8.2)
--- NOTE | 2019-05-09 21:18 | XRAY Report ---
Reason: RIGHT MIDDLE FINGER PAIN Procedure Date: 05/09/2019 Accession Number: [id number] / [id number] Procedure: XR - Hand 3 View RT CPT Code: Final Report FULL RESULT: EXAM: RIGHT HAND RADIOGRAPHY EXAM DATE: 05/09/2019 09:06 PM. CLINICAL HISTORY: RIGHT MIDDLE FINGER PAIN. COMPARISON: None. TECHNIQUE: 3 views. FINDINGS: Bones: Normal. No fractures or bone lesions. Joints: Normal. No subluxations. Soft Tissues: Normal. No soft tissue swelling. IMPRESSION: Normal hand radiography. RADIA
[2019-05-09 21:25] LABS: HCG,QUALITATIVE BLOOD NEGATIVE
--- NOTE | 2019-05-09 21:49 | ED Physician Documentation ---
History of Present Illness - Stated complaint Stated Complaint: RT HAND NUMBNESS/SWELLING - Chief complaint Chief Complaint: Ext Problem - History obtained from History obtained from: Patient - History of Present Illness Timing: How many days ago (3) Quality: dull Radiates to: forearm and elbow Improved by: nothing Worsened by: nothing - Additonal information Additional information: 48 YEAR OLD FEMALE, RIGHT HAND DOMINANT, PRESENTS TO THE EMERGENCY DEPARTMENT WITH SEVERAL DAYS OF RIGHT MIDDLE FINGER SWELLING AT THE MIDDLE AND PROXIMAL PHALANGES. 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 SHE REPORTED OF CUTS TO HER HANDS AND PULLED OUT SMALL THORNS FROM THE SKIN SURFACE. SHE HAS NOTICED MILD SWELLING TO THE RIGHT MIDDLE FINGER WITH SHOOTING UP HER RIGHT FOREARM TO ELBOW. SHE REPORTED OF NUMBNESS. SHE DENIES FEVER, CHILLS, RED STREAKING. SHE DENIES CHEST PAIN, SHORTNESS OF BREATH, NAUSEA, VOMITING. SHE WAS CONCERNED OF POSSIBLE INFECTION. Review of Systems Constitutional: denies: Fever, Chills Nose: denies: Rhinorrhea / runny nose Throat: denies: Oral lesions / sores Cardiac: denies: Chest pain / pressure Respiratory: denies: Dyspnea GI: denies: Abdominal Pain, Nausea, Vomiting Skin: reports: Other (SUPERFICIAL CUTS) Musculoskeletal: reports: Extremity pain (RIGHT MIDDLE FINGER (SWELLING AND NUMBNESS), FOREARM (SHOOTING PAIN) AND ELBOW). 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 : None HEENT: None Psych: Depression, Anxiety Musculoskeletal: None Derm: None - Past Surgical History Past Surgical History: No - Present Medications Home Medications: Ambulatory Orders Medication Instructions Recorded Confirmed Amox/Clav 875/125 [Augmentin] 1 each PO Q12H #14 tablet 11/24/18 Cetirizine [ZyrTEC] 10 mg PO DAILY #15 tablet 03/23/19 LORazepam [Ativan] 1 mg PO Q6H PRN #25 tablet 03/23/19 dexAMETHasone [Decadron] 4 mg PO DAILY #5 tablet 03/23/19 - Allergies Allergies/Adverse Reactions: Allergies Allergy/AdvReac Type Severity Reaction Status Date / Time No Known Drug Allergies Allergy Verified 05/09/19 20:02 - Social History Does the pt smoke?: Yes Smoking Status: Current every day smoker Does the pt drink ETOH?: No Does the pt have substance abuse?: No - Immunizations Immunizations are current?: No Immunizations: TDAP >10years/unknown - POLST Patient has POLST: No PD ED PE NORMAL - Vitals Vital signs reviewed: Yes - General General: Alert and oriented X 3 - HEENT HEENT: Atraumatic, EOMI, Moist mucous membranes - Neck Neck: Supple, no meningeal sign - Cardiac Cardiac: RRR - Respiratory Respiratory: No respiratory distress - Abdomen Abdomen: Normal bowel sounds, Soft, Non tender, Non distended - Back Back: No CVA TTP - Derm Derm: Normal color - Extremities Extremities: No tenderness to palpate, Normal ROM s pain, No edema, No calf tenderness / cord, Other (NO OBVIOUS SWELLING OR REDNESS NOTED TO FINGERS, FOREARM, WRIST OR ELBOW ON RIGHT. NO RED STREAKING. FULL RANGE OF MOTION OF RIGHT WRIST, ELBOW WITHOUT EFFUSION. TINEL'S NEGATIVE.) - Neuro Neuro: Alert and oriented X 3, No motor deficit, No sensory deficit Eye Opening: Spontaneous Motor: Obeys Commands Verbal: Oriented GCS Score: 15 Results - Vitals Vitals: Oxygen O2 Source Room air - Labs Labs: Laboratory Tests 05/09/19 05/09/19 05/09/19 20:38 20:38 20:38 WBC 6.9 RBC 4.27 Hgb 12.4 Hct 38.5 MCV 90.2 MCH 29.0 MCHC 32.2 RDW 14.5 Plt Count 274 MPV 9.2 Neut # (Auto) 3.8 Lymph # (Auto) 2.3 [place] # (Auto) 0.5 Eos # (Auto) 0.2 Baso # (Auto) 0.1 Absolute Nucleated RBC 0.00 Nucleated RBC % 0.0 Sodium 135 Potassium 3.8 Chloride 104 Carbon Dioxide 22 Anion Gap 9.0 BUN 15 Creatinine 0.9 Estimated GFR (MDRD) 67 L Glucose 94 Calcium 8.9 Total Bilirubin 0.3 AST 17 ALT 14 Alkaline Phosphatase 45 Total Protein 6.7 Albumin 4.1 Globulin 2.6 Albumin/Globulin Ratio 1.6 Serum HCG, Qual NEGATIVE PD MEDICAL DECISION MAKING - ED course Complexity details: reviewed results, re-evaluated patient, d/w patient ED course: 48 YEAR OLD FEMALE PRESENTS TO THE EMERGENCY DEPARTMENT BECAUSE OF RIGHT FINGER, HAND, PAIN AND NUMBNESS RADIATING UP TO ELBOW. EXAM DID NOT SUGGEST CARPAL TUNNEL SYNDROME HER PAIN AFFECTED ONLY HER RIGHT MIDDLE FINGER WITHOUT INVOLVEMENT TO RIGHT THUMB OR INDEX FINGER. NO JOINT SWELLING NOTED TO FINGER, WRIST OR ELBOW. NO RED STREAKING WAS NOTED TO SUGGEST CELLULITIS. X-RAY OF THE RIGHT HAND DID NOT SHOW ACUTE ABNORMALITY. WBC WAS NORMAL. NUMBNESS AND PAIN LIKELY DUE TO TENDONITIS WITH REPETITIVE MOVEMENTS. AT THIS TIME, NO INFECTIOUS PROCESS WAS IDENTIFIED. I RECOMMENDED REST, SUPPORTIVE CARE AND OUTPATIENT FOLLOW UP WITH PCP IN 5-7 DAYS. STRICT RETURN INSTRUCTIONS WERE GIVEN. PATIENT EXPRESSED VERBAL UNDERSTANDING. SHE WAS DISCHARGED IN STABLE CONDITION. Departure - Departure Disposition: 01 Home, Self Care Clinical Impression: Tendinitis of finger of right hand Condition: Stable Instructions: Tendonitis and Tenosynovitis Follow-Up: [facility] [Provider Group] - Within 1 week Comments: PLEASE FOLLOW UP WITH YOUR DOCTOR IN 5-7 DAYS TO ENSURE RESOLUTION OF SYPMTOMS. PLEASE USE TYLENOL NEEDED FOR PAIN CONTROL. YOU MAY USE ICE OR A HEATING PAD FOR SYMPTOMATIC CONTROL. PLEASE RETURN TO THE EMERGENCY DEPARTMENT IF SWELLING INCREASES, RED STREAKING DEVELOPS, FEVER OF 100.4 OR GREATER DEVELOPS. Discharge Date/Time: 05/09/19 21:53
== END 2019-05-09 21:53 | disposition home or self-care (01) ==
LOC: ED 19:59
DX: M70.841 Other soft tissue disorders related to use, overuse and pressure, right hand (principal); Y93.H2 Activity, gardening and landscaping; F17.200 Nicotine dependence, unspecified, uncomplicated
CPT/HCPCS: 36415; 80053; 84703; 85025; 99284

== ENCOUNTER 2019-09-11 02:28 | Outpatient (CLI) | payer MEDICAID | END 2019-09-11 02:29 | disposition critical access hospital (66) | LOC: EMS 02:28 | PROVIDERS: ATTEND Surgery | DX: R06.02 Shortness of breath (principal); R09.89 Other specified symptoms and signs involving the circulatory and respiratory systems; R61 Generalized hyperhidrosis | CPT/HCPCS: A0425; A0429 ==

== ENCOUNTER 2019-09-11 02:58 | Emergency (ER) | payer MEDICAID ==
--- NOTE | 2019-09-11 03:05 | ED Physician Documentation ---
History of Present Illness - Stated complaint Stated Complaint: SOA/DIZZY - History obtained from History obtained from: Patient, EMS - History of Present Illness Timing: Enter time (21:00) Pain level max: 0 Pain level now: 0 Improved by: no ameliorating factors Worsened by: no exacerbating factors - Additonal information Additional information: woke from sleep approximately 9 PM tonight with sensation of lightheadedness, felt like she might pass out. She felt her limbs were heavy, had generalized paresthesias, generalized weakness. She then used the bathroom and had loose, watery stool. Her symptoms persisted and thus she called 911. JAYNE. Had 1-2 glasses of wine tonight and last night but otherwise has been sober for several months. Review of Systems Constitutional: reports: Fatigue, Sweats. denies: Fever, Chills Eyes: reports: Reviewed and negative Cardiac: reports: Reviewed and negative Respiratory: reports: Reviewed and negative GI: reports: Diarrhea. denies: Abdominal Pain, Nausea, Vomiting : denies: Dysuria, Frequency Neurologic: reports: Generalized weakness. 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 HEENT: None Psych: Depression, Anxiety Musculoskeletal: None Derm: None - Past Surgical History Past Surgical History: No - Present Medications Home Medications: Ambulatory Orders Medication Instructions Recorded Confirmed LORazepam [Lorazepam] 0.5 - 1 mg PO BID PRN #14 tablet 09/11/19 - Allergies Allergies/Adverse Reactions: Allergies Allergy/AdvReac Type Severity Reaction Status Date / Time No Known Drug Allergies Allergy Verified 09/11/19 03:09 - Social History Does the pt smoke?: Yes Smoking Status: Current every day smoker Does the pt drink ETOH?: No Does the pt have substance abuse?: No - Immunizations Immunizations are current?: No Immunizations: TDAP >10years/unknown - POLST Patient has POLST: No PD ED PE NORMAL - Vitals Vital signs reviewed: Yes - General General: Alert and oriented X 3, Well developed/nourished, Other (appears mildly anxious at times) - HEENT HEENT: PERRL, EOMI, Moist mucous membranes - Neck Neck: Supple, no meningeal sign - Cardiac Cardiac: RRR, No murmur, No gallop, No rub - Respiratory Respiratory: No respiratory distress, Clear bilaterally - Abdomen Abdomen: Soft, Non tender - Derm Derm: Normal color, Warm and dry - Extremities Extremities: No edema Results - Vitals Vitals: Vital Signs - 24 hr 09/11/19 09/11/19 09/11/19 03:00 03:17 04:30 Temperature 36.1 C L Heart Rate 69 75 Respiratory 17 18 Rate Blood Pressure 117/81 H 109/84 H Blood Pressure 117/81 H [Left] Blood Pressure 115/75 [Right] O2 Saturation 100 99 09/11/19 09/11/19 05:30 05:51 Temperature Heart Rate 75 77 Respiratory 16 18 Rate Blood Pressure 107/66 110/74 Blood Pressure [Left] Blood Pressure [Right] O2 Saturation 98 98 Oxygen O2 Source Room air - Labs Labs: Laboratory Tests 09/11/19 09/11/19 09/11/19 03:10 03:10 03:10 WBC 7.4 RBC 4.57 Hgb 13.7 Hct 40.2 MCV 88.0 MCH 30.0 MCHC 34.1 RDW 13.3 Plt Count 336 MPV 9.3 Neut # (Auto) 4.9 Lymph # (Auto) 1.8 [place] # (Auto) 0.5 Eos # (Auto) 0.1 Baso # (Auto) 0.1 Absolute Nucleated RBC 0.00 Nucleated RBC % 0.0 Sodium 136 Potassium 3.5 Chloride 103 Carbon Dioxide 19 L Anion Gap 14.0 H BUN 13 Creatinine 0.8 Estimated GFR (MDRD) 76 L Glucose 105 H Calcium 9.8 Total Bilirubin 0.5 AST 22 ALT 16 Alkaline Phosphatase 51 Total Protein 7.7 Albumin 4.5 Globulin 3.2 Albumin/Globulin Ratio 1.4 Lipase 44 TSH 2.95 PD MEDICAL DECISION MAKING - ED course Complexity details: reviewed results, re-evaluated patient, considered differential, d/w patient ED course: stable vital signs during ED stay. she reported some improvement after PO and IV lorazepam. Reassuring blood test results and EKG. Departure - Departure Disposition: 01 Home, Self Care Clinical Impression: Dyspnea Condition: Good Instructions: ED Symptoms No Dx Prescriptions: LORazepam [Lorazepam] 0.5 - 1 mg PO BID PRN #14 tablet PRN Reason: Anxiety Discharge Date/Time: 09/11/19 05:55
[2019-09-11] MEDS ORDERED: LORazepam 0.5 MG TABLET PO STA (03:25)
[2019-09-11 03:30] LABS: BASOPHILS # (AUTO) 0.1 10^3/uL (0.0-0.1); BASOPHILS % (AUTO) 0.8 %; EOSINOPHILS # (AUTO) 0.1 10^3/uL (0.0-0.7); EOSINOPHILS % (AUTO) 1.4 %; HGB - HEMOGLOBIN 13.7 g/dL (12.0-16.0); LYMPHOCYTES # (AUTO) 1.8 10^3/uL (1.5-3.5); LYMPHOCYTES % (AUTO) 24.7 %; MEAN CORPUSCULAR HGB CONC 34.1 g/dL (32.0-36.0); MEAN PLATELET VOLUME 9.3 fL (7.9-10.8); MONOCYTES # (AUTO) 0.5 10^3/uL (0.0-1.0); MONOCYTES % (AUTO) 6.5 %; NEUTROPHILS # (AUTO) 4.9 10^3/uL (1.5-6.6); NEUTROPHILS % (AUTO) 66.2 %; PLT - PLATELET COUNT 336 10^3/uL (130-450); RED BLOOD COUNT 4.57 10^6/uL (4.20-5.40); RED CELL DISTRIBUTION WIDTH 13.3 % (12.0-15.0); WHITE BLOOD COUNT 7.4 x10^3/uL (4.8-10.8)
[2019-09-11 03:39] LABS: ALBUMIN 4.5 g/dL (3.2-5.5); ALBUMIN/GLOBULIN RATIO 1.4 (1.0-2.2); BILIRUBIN,TOTAL 0.5 mg/dL (0.2-1.0); CALCIUM 9.8 mg/dL (8.5-10.3); CREATININE 0.8 mg/dL (0.4-1.0); TOTAL PROTEIN 7.7 g/dL (6.7-8.2)
[2019-09-11] MEDS ORDERED: LORazepam 2 MG/ML VIAL IVP STA (03:51)
[2019-09-11 05:52] VITALS: BP 110/74
== END 2019-09-11 05:55 | disposition home or self-care (01) ==
LOC: EDUNIT# → ED 02:58
DX: R06.00 Dyspnea, unspecified (principal); R42 Dizziness and giddiness; R19.7 Diarrhea, unspecified; F41.9 Anxiety disorder, unspecified; F17.200 Nicotine dependence, unspecified, uncomplicated
CPT/HCPCS: 36415; 80053; 83690; 84443; 85025; 93005; 96374; 99284; A9270; J2060

== ENCOUNTER 2019-11-19 20:33 | Emergency (ER) | payer MEDICAID ==
[2019-11-19] MEDS ORDERED: SODIUM CHLORIDE 0.9% 1,000 ML IV STA (20:59)
--- NOTE | 2019-11-19 21:05 | ED Physician Documentation ---
History of Present Illness - Stated complaint Stated Complaint: ANXIETY, ETOH - Chief complaint Chief Complaint: Neuro - History obtained from History obtained from: Patient - History of Present Illness Timing: How many days ago (3) Pain level now: 0 Improved by: nothing Worsened by: no exacerbating factors - Additonal information Additional information: patient c/o generalized anxiety x 3 days which she has been controlling with alcohol. She has been drinking over past 3 days and today has had increasing generalized anxiety, dizziness, vague abdominal discomfort, blurry vision. She has an appointment with a new PMD this coming Tuesday (one week). Review of Systems Constitutional: denies: Fever, Chills, Sweats Eyes: reports: Other (bilateral blurry vision) Cardiac: reports: Reviewed and negative Respiratory: reports: Reviewed and negative GI: reports: Abdominal Pain (generazlied, vague). 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 : None HEENT: None Psych: Depression, Anxiety Musculoskeletal: None Derm: None - Past Surgical History Past Surgical History: No - Present Medications Home Medications: Ambulatory Orders Medication Instructions Recorded Confirmed LORazepam [Lorazepam] 0.5 - 1 mg PO BID PRN #14 tablet 09/11/19 LORazepam [Lorazepam] 0.5 - 1 mg PO BID PRN #14 tablet 11/19/19 - Allergies Allergies/Adverse Reactions: Allergies Allergy/AdvReac Type Severity Reaction Status Date / Time No Known Drug Allergies Allergy Verified 11/19/19 20:50 - Social History Does the pt smoke?: Yes Smoking Status: Current every day smoker Does the pt drink ETOH?: Yes ETOH Use: Beer Does the pt have substance abuse?: No - Immunizations Immunizations are current?: No Immunizations: TDAP >10years/unknown - POLST Patient has POLST: No PD ED PE NORMAL - Vitals Vital signs reviewed: Yes - General General: Alert and oriented X 3, No acute distress, Well developed/nourished - HEENT HEENT: Other (pasty/tacky mucous membranes) - Neck Neck: Supple, no meningeal sign - Cardiac Cardiac: RRR, No murmur - Respiratory Respiratory: No respiratory distress, Clear bilaterally - Abdomen Abdomen: Soft, Non tender - Back Back: No CVA TTP - Derm Derm: Normal color, Warm and dry - Extremities Extremities: No edema - Neuro Neuro: Alert and oriented X 3, 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, No motor deficit, No sensory deficit, Normal speech Eye Opening: Spontaneous Motor: Obeys Commands Verbal: Oriented GCS Score: 15 Results - Vitals Vitals: Vital Signs - 24 hr 11/19/19 11/19/19 11/19/19 20:43 20:55 22:09 Temperature 37.1 C Heart Rate 100 100 66 Respiratory 14 15 15 Rate Blood Pressure 134/90 H 134/90 H 115/68 O2 Saturation 100 100 100 11/19/19 23:35 Temperature Heart Rate 86 Respiratory 16 Rate Blood Pressure 114/81 H O2 Saturation 100 Oxygen O2 Source Room air - Labs Labs: Laboratory Tests 11/19/19 11/19/19 11/19/19 21:00 21:12 21:12 WBC 7.8 RBC 4.67 Hgb 14.2 Hct 41.2 MCV 88.2 MCH 30.4 MCHC 34.5 RDW 14.8 Plt Count 320 MPV 9.1 Neut # (Auto) 4.4 Lymph # (Auto) 2.6 [place] # (Auto) 0.6 Eos # (Auto) 0.1 Baso # (Auto) 0.1 Absolute Nucleated RBC 0.00 Nucleated RBC % 0.0 Sodium 138 Potassium 3.0 L Chloride 99 L Carbon Dioxide 28 Anion Gap 11.0 BUN 10 Creatinine 0.8 Estimated GFR (MDRD) 76 L Glucose 95 Calcium 9.5 Phosphorus 2.9 Magnesium 2.1 Total Bilirubin 0.6 AST 15 ALT 13 Alkaline Phosphatase 47 Total Protein 7.2 Albumin 4.1 Globulin 3.1 Albumin/Globulin Ratio 1.3 Lipase 31 Urine Color YELLOW Urine Clarity CLEAR Urine pH 8.0 H Ur Specific [place] 1.010 Urine Protein NEGATIVE Urine Glucose (UA) NEGATIVE Urine Ketones NEGATIVE Urine Occult Blood NEGATIVE Urine Nitrite NEGATIVE Urine Bilirubin NEGATIVE Urine Urobilinogen 0.2 (NORMAL) Ur Leukocyte Esterase NEGATIVE Ur Microscopic Review NOT INDICATED Urine Culture Comments NOT INDICATED Urine HCG, Qual NEGATIVE Ethyl Alcohol < 5.0 PD MEDICAL DECISION MAKING - ED course Complexity details: reviewed old records, reviewed results, re-evaluated patient, considered differential, d/w patient ED course: patient reports significant improvement in symptoms after IV fluids and IV lorazepam. Given second dose of lorazepam for residual anxiety and rx for lorazepam Departure - Departure Disposition: 01 Home, Self Care Clinical Impression: Anxiety Condition: Good Instructions: ED Stress React Prescriptions: LORazepam [Lorazepam] 0.5 - 1 mg PO BID PRN #14 tablet PRN Reason: Anxiety Discharge Date/Time: 11/19/19 23:46
[2019-11-19 21:11] LABS: BILIRUBIN,URINE NEGATIVE (NEGATIVE); GLUCOSE, URINE (UA) NEGATIVE (NEGATIVE); KETONES,URINE (UA) NEGATIVE (NEGATIVE); LEUKOCYTE ESTERASE, URINE NEGATIVE (NEGATIVE); NITRITE,URINE NEGATIVE (NEGATIVE); OCCULT BLOOD,URINE NEGATIVE (NEGATIVE); PROTEIN,URINE NEGATIVE (NEGATIVE); UROBILINOGEN,URINE 0.2 (NORMAL) E.U./dL (NORMAL)
[2019-11-19 21:13] LABS: CLARITY,URINE CLEAR (CLEAR); HCG UR QUAL NEGATIVE
[2019-11-19] MEDS ORDERED: LORazepam 2 MG/ML VIAL IVP STA ×2 (21:14→23:18)
[2019-11-19 21:27] LABS: BASOPHILS # (AUTO) 0.1 10^3/uL (0.0-0.1); BASOPHILS % (AUTO) 0.8 %; EOSINOPHILS # (AUTO) 0.1 10^3/uL (0.0-0.7); EOSINOPHILS % (AUTO) 1.3 %; HGB - HEMOGLOBIN 14.2 g/dL (12.0-16.0); LYMPHOCYTES # (AUTO) 2.6 10^3/uL (1.5-3.5); LYMPHOCYTES % (AUTO) 33.1 %; MEAN CORPUSCULAR HEMOGLOBIN 30.4 pg (27.0-31.0); MEAN CORPUSCULAR HGB CONC 34.5 g/dL (32.0-36.0); MEAN CORPUSCULAR VOLUME 88.2 fL (81.0-99.0); MEAN PLATELET VOLUME 9.1 fL (7.9-10.8); MONOCYTES # (AUTO) 0.6 10^3/uL (0.0-1.0); MONOCYTES % (AUTO) 7.8 %; NEUTROPHILS # (AUTO) 4.4 10^3/uL (1.5-6.6); NEUTROPHILS % (AUTO) 56.7 %; PLT - PLATELET COUNT 320 10^3/uL (130-450); RED BLOOD COUNT 4.67 10^6/uL (4.20-5.40); RED CELL DISTRIBUTION WIDTH 14.8 % (12.0-15.0); WHITE BLOOD COUNT 7.8 x10^3/uL (4.8-10.8)
[2019-11-19 21:41] LABS: ALBUMIN 4.1 g/dL (3.2-5.5); ALBUMIN/GLOBULIN RATIO 1.3 (1.0-2.2); ALKALINE PHOSPHATASE 47 IU/L (42-121); ALT ALANINE AMINOTRANSFERASE 13 IU/L (10-60); AST ASPARTATE AMINOTRANSFERASE 15 IU/L (10-42); BILIRUBIN,TOTAL 0.6 mg/dL (0.2-1.0); BUN - BLOOD UREA NITROGEN 10 mg/dL (6-20); CALCIUM 9.5 mg/dL (8.5-10.3); CARBON DIOXIDE - CO2 28 mmol/L (21-32); CHLORIDE 99 mmol/L (101-111); CREATININE 0.8 mg/dL (0.4-1.0); GLUCOSE 95 mg/dL (70-100); LIPASE 31 U/L (22-51); MAGNESIUM 2.1 mg/dL (1.7-2.8); PHOSPHORUS 2.9 mg/dL (2.5-4.6); SODIUM 138 mmol/L (135-145); TOTAL PROTEIN 7.2 g/dL (6.7-8.2)
[2019-11-19] MEDS ORDERED: POTASSIUM CHLORIDE 20 MEQ TABLET PO STA (23:19)
[2019-11-19 23:36] VITALS: BP 114/81
== END 2019-11-19 23:46 | disposition home or self-care (01) ==
LOC: ED 20:33
DX: F41.1 Generalized anxiety disorder (principal); F17.200 Nicotine dependence, unspecified, uncomplicated
CPT/HCPCS: 36415; 80053; 80320; 81003; 81025; 83690; 83735; 84100; 85025; 96361; 96374; 96376; 99283; 99284; A9270; J2060; 81001; 87086

== ENCOUNTER 2020-01-01 07:41 | Outpatient (CLI) | payer MEDICAID ==
[2020-01-01 15:27] LABS: HGB - HEMOGLOBIN 13.7 g/dL (12.0-16.0); MEAN CORPUSCULAR HEMOGLOBIN 29.9 pg (27.0-31.0); MEAN CORPUSCULAR HGB CONC 32.3 g/dL (32.0-36.0); MEAN CORPUSCULAR VOLUME 92.6 fL (81.0-99.0); MEAN PLATELET VOLUME 9.9 fL (7.9-10.8); RED BLOOD COUNT 4.58 10^6/uL (4.20-5.40); RED CELL DISTRIBUTION WIDTH 13.7 % (12.0-15.0); WHITE BLOOD COUNT 5.3 x10^3/uL (4.8-10.8)
[2020-01-01 16:00] LABS: % IRON SATURATION 6 % (20-50); ALBUMIN 3.9 g/dL (3.2-5.5); ALBUMIN/GLOBULIN RATIO 1.2 (1.0-2.2); ALKALINE PHOSPHATASE 54 IU/L (42-121); ALT ALANINE AMINOTRANSFERASE 11 IU/L (10-60); AST ASPARTATE AMINOTRANSFERASE 14 IU/L (10-42); BILIRUBIN,TOTAL 0.4 mg/dL (0.2-1.0); BUN - BLOOD UREA NITROGEN 13 mg/dL (6-20); CALCIUM 9.1 mg/dL (8.5-10.3); CARBON DIOXIDE - CO2 26 mmol/L (21-32); CHLORIDE 103 mmol/L (101-111); CHOL/HDL RATIO 2.2 (<4.4); CHOLESTEROL 189 mg/dL; CREATININE 0.9 mg/dL (0.4-1.0); GLUCOSE 92 mg/dL (70-100); HDL CHOLESTEROL 85 mg/dL; IRON 22 ug/dL (28-170); LDL CHOLESTEROL,CALCULATED 95 mg/dL; LDL/HDL RATIO 1.1 (<4.4); SODIUM 137 mmol/L (135-145); TOTAL IRON BINDING CAPACITY 350 ug/dL (250-450); TOTAL PROTEIN 7.1 g/dL (6.7-8.2); TRANSFERRIN 250 mg/dL (192-382); VLDL CHOLESTEROL 9 mg/dL
[2020-01-01 20:11] LABS: HEMOGLOBIN A1c% 4.9 % (4.27-6.07)
== END 2020-01-01 07:42 | disposition home or self-care (01) ==
LOC: LAB 07:41
PROVIDERS: ATTEND Obstetrics & Gynecology
DX: Z00.00 Encounter for general adult medical examination without abnormal findings (principal); R00.2 Palpitations; Z13.1 Encounter for screening for diabetes mellitus; Z13.220 Encounter for screening for lipoid disorders
CPT/HCPCS: 36415; 80053; 80061; 83036; 83540; 83721; 84443; 84466; 85027

== ENCOUNTER 2020-08-06 13:57 | Outpatient (CLI) | payer MEDICAID | END 2020-08-06 13:58 | disposition critical access hospital (66) | LOC: EMS 13:57 | DX: R07.89 Other chest pain (principal); R42 Dizziness and giddiness | CPT/HCPCS: A0425; A0429; A0999 ==

== ENCOUNTER 2020-08-06 14:28 | Emergency (ER) | payer MEDICAID ==
[2020-08-06] MEDS ORDERED: ASPIRIN CHEW 81 MG TABLET PO STA (14:45)
--- NOTE | 2020-08-06 14:48 | ED Physician Documentation ---
PD HPI CHEST PAIN - Stated complaint Stated Complaint: CHEST TIGHTNESS - Chief complaint Chief Complaint: Cardiac - History obtained from History obtained from: Patient - Additional information Additional information: 50-year-old woman with no significant past medical history except for anxiety presents by ambulance for 3 weeks of chest pain. It is associated with accelerating alcohol use over the last weeks to months. Two drinks so far today. She feels panicky with chest heaviness and sense of impending doom. No radiation to the back. There is some tingling in the left arm. 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: None Psych: Depression, Anxiety Musculoskeletal: None Derm: None - Past Surgical History Past Surgical History: No - Present Medications Home Medications: Ambulatory Orders Medication Instructions Recorded Confirmed LORazepam [Ativan] 1 mg PO TID PRN #12 tablet 08/06/20 - Allergies Allergies/Adverse Reactions: Allergies Allergy/AdvReac Type Severity Reaction Status Date / Time No Known Drug Allergies Allergy Verified 08/06/20 14:34 - Social History Does the pt smoke?: Yes Smoking Status: Current every day smoker Does the pt drink ETOH?: Yes Does the pt have substance abuse?: No - Immunizations Immunizations are current?: No Immunizations: TDAP >10years/unknown - POLST Patient has POLST: No PD ED PE NORMAL - Vitals Vital signs reviewed: Yes - General General: Alert and oriented X 3, No acute distress - HEENT HEENT: PERRL, EOMI - Neck Neck: Supple, no meningeal sign, No bony TTP - Cardiac Cardiac: RRR, No murmur - Respiratory Respiratory: No respiratory distress, Clear bilaterally - Abdomen Abdomen: Soft, Non tender - Back Back: No CVA TTP, No spinal TTP - Derm Derm: Normal color, Warm and dry - Extremities Extremities: No edema, No calf tenderness / cord - Neuro Neuro: Alert and oriented X 3, Normal speech - Psych Psych: Other (anxious) Results - Vitals Vitals: Vital Signs - 24 hr 08/06/20 08/06/20 08/06/20 14:34 15:01 15:50 Temperature 37.2 C 37 C Heart Rate 82 84 74 Respiratory 18 12 16 Rate Blood Pressure 131/85 H 113/84 H 119/88 H O2 Saturation 99 100 100 08/06/20 16:56 Temperature 36.7 C Heart Rate 75 Respiratory 13 Rate Blood Pressure 116/99 H O2 Saturation 99 Oxygen O2 Source Room air - EKG (time done) 1434 Rate: Rate (enter#) (82) Rhythm: NSR [place]: Normal Intervals: Normal MD QRS: Normal Ischemia: Normal ST segments - Labs Labs: Laboratory Tests 08/06/20 08/06/20 08/06/20 14:55 14:55 14:55 WBC 5.4 RBC 4.52 Hgb 14.0 Hct 40.3 MCV 89.2 MCH 31.0 MCHC 34.7 RDW 13.8 Plt Count 316 MPV 8.6 Neut # (Auto) 3.0 Lymph # (Auto) 2.0 [place] # (Auto) 0.4 Eos # (Auto) 0.0 Baso # (Auto) 0.1 Absolute Nucleated RBC 0.00 Nucleated RBC % 0.0 Sodium 136 Potassium 3.5 Chloride 98 L Carbon Dioxide 24 Anion Gap 14.0 H BUN 10 Creatinine 0.7 Estimated GFR (MDRD) 89 Glucose 99 Calcium 9.4 Total Bilirubin 0.6 AST 27 ALT 17 Alkaline Phosphatase 59 Troponin I High Sens 3.5 Total Protein 7.9 Albumin 4.5 Globulin 3.4 Albumin/Globulin Ratio 1.3 Lipase 34 Ethyl Alcohol 52.3 - Rads (name of study) 1v chest Radiology: EMP read contemporaneously (NAD) PD MEDICAL DECISION MAKING - ED course ED course: 50-year-old woman with atypical and longstanding chest pain likely related to anxiety and alcohol. No objective evidence of ACS or other serious etiology. Seen here by social work seen by social work. Declined inpatient detox. Departure - Departure Disposition: 01 Home, Self Care Clinical Impression: Alcohol abuse, Heart palpitations Chest pain Qualifiers: Chest pain type: unspecified Qualified Code(s): R07.9 - Chest pain, unspecified Condition: Good Record reviewed to determine appropriate education?: Yes Instructions: ED Chest Pain NonCardiac, ED Alcohol Abuse Prescriptions: LORazepam [Ativan] 1 mg PO TID PRN #12 tablet PRN Reason: Anxiety Comments: No evidence of active heart disease thankfully. Follow-up with your primary care physician. Return for new or worsening symptoms. Important to completely abstain from alcohol if you take the lorazepam, it is not safe to mix that medication with alcohol. Also do not drive with it or drive today. Discharge Date/Time: 08/06/20 17:30
[2020-08-06 15:02] LABS: BASOPHILS # (AUTO) 0.1 10^3/uL (0.0-0.1); BASOPHILS % (AUTO) 1.1 %; EOSINOPHILS % (AUTO) 0.7 %; HCT - HEMATOCRIT 40.3 % (37.0-47.0); LYMPHOCYTES % (AUTO) 36.3 %; MEAN CORPUSCULAR HGB CONC 34.7 g/dL (32.0-36.0); MEAN CORPUSCULAR VOLUME 89.2 fL (81.0-99.0); MEAN PLATELET VOLUME 8.6 fL (7.9-10.8); MONOCYTES # (AUTO) 0.4 10^3/uL (0.0-1.0); NEUTROPHILS % (AUTO) 54.5 %; PLT - PLATELET COUNT 316 10^3/uL (130-450); RED BLOOD COUNT 4.52 10^6/uL (4.20-5.40); RED CELL DISTRIBUTION WIDTH 13.8 % (12.0-15.0); WHITE BLOOD COUNT 5.4 x10^3/uL (4.8-10.8)
--- OUTSIDE RECORDS SUMMARY | 2020-08-06 15:14 | EXTERNAL MEDICAL SUMMARY RPT | Continuity of Care Document ---
:1970 Demographics Phone Unavailable Preferred Language Unknown Marital Status Unknown Jainism Affiliation Unknown Race Unknown Ethnic Group Unknown Author Organization [facility] Address [address] [phone] Phone Allergies Encounters Medications Problems Results
[2020-08-06 15:16] LABS: ALBUMIN 4.5 g/dL (3.2-5.5); ALBUMIN/GLOBULIN RATIO 1.3 (1.0-2.2); BILIRUBIN,TOTAL 0.6 mg/dL (0.2-1.0); CALCIUM 9.4 mg/dL (8.5-10.3); CREATININE 0.7 mg/dL (0.4-1.0); ETOH - ETHANOL 52.3 mg/dL; POTASSIUM 3.5 mmol/L (3.5-5.0); TOTAL PROTEIN 7.9 g/dL (6.7-8.2)
--- NOTE | 2020-08-06 15:19 | XRAY Report ---
PROCEDURE: Chest 1 View X-Ray INDICATIONS: Chest Pain TECHNIQUE: One view of the chest was acquired. COMPARISON: None FINDINGS: Surgical changes and devices: None. Lungs and pleura: No pleural effusions or pneumothorax. Lungs are clear. Mediastinum: Mediastinal contours appear normal. Heart size is normal. Bones and chest wall: No suspicious bony lesions. Overlying soft tissues appear unremarkable. IMPRESSION: No acute pulmonary process. Reviewed by: Ashwini Browning MD on 08/06/2020 3:18 PM PDT Approved by: Ashwini Browning MD on 08/06/2020 3:18 PM PDT Station ID: [id number]
[2020-08-06] MEDS ORDERED: ONDANSETRON 4 MG/2 ML VIAL IVP STA (16:40)
[2020-08-06 16:59] VITALS: BP 116/99
== END 2020-08-06 17:30 | disposition home or self-care (01) ==
LOC: EDUNIT# → ED 14:28
DX: R07.89 Other chest pain (principal); F10.10 Alcohol abuse, uncomplicated; R00.2 Palpitations; F41.9 Anxiety disorder, unspecified; F17.200 Nicotine dependence, unspecified, uncomplicated
CPT/HCPCS: 36415; 80053; 80320; 83690; 84484; 85025; 93005; 96374; 99284